=== PATIENT | male | born 1950 | race Caucasian/White ===

== ENCOUNTER 2018-07-05 21:39 | Inpatient (IN) | payer MEDICARE, SELFPAY ==
[2018-07-05 22:07] VITALS: BP 106/64; PULSE 95; RESP 20; TEMP 38; O2SAT 94; BMI 29.5
--- NOTE | 2018-07-05 22:13 | DI.RAD.S_ITS ---
PROCEDURE: XR CHEST 2V INDICATIONS: weak TECHNIQUE: 2 views of the chest were acquired. COMPARISON: None. FINDINGS: Surgical changes and devices: None. Lungs and pleura: Lungs are clear. No pleural effusions or pneumothorax. Mediastinum: The cardiac contours are within normal limits. The aorta demonstrates calcification and tortuosity. Bones and chest wall: No suspicious bony abnormalities. Remote left lateral rib fractures are seen. Age-appropriate bony degenerative changes are seen. Soft tissues appear unremarkable. IMPRESSION: No acute cardiopulmonary process is seen. Remote left lateral rib fractures. Dictated by: Truong East M.D. on 07/06/2018 at 7:46 Approved by: Truong East M.D. on 07/06/2018 at 7:47
[2018-07-06] VITALS (13 sets, daily range): BP systolic 86–136; BP diastolic 47–69; PULSE 77–94; RESP 12–22; TEMP 36.4–38.9; O2SAT 94–100; BMI 29.5
--- NOTE | 2018-07-06 | DI.US.S_ITS ---
PROCEDURE: US RENAL COMPLETE INDICATIONS: RENAL FAILURE TECHNIQUE: Real-time scanning was performed of the kidneys and bladder, with image documentation. COMPARISON: None. FINDINGS: Kidneys: Kidneys are normal in size. Right kidney measures 13.8 cm long; left kidney measures 15.2 cm long. Right renal cortical thickness is 2.4 cm; left renal cortical thickness is 1.7 cm. Renal cortical echotexture is normal. Bilateral moderate hydronephrosis is present. No solid renal lesion identified.. Bladder: Pre-void bladder volume is 3011 mL. Post-void residual is unobtainable as the patient was unable to void Pre-void images demonstrate no intraluminal masses or stones. On pre-void images, neither of the ureteral jets are noted with color Doppler interrogation. (Of note, ureteral jets may not be detectable in up to 25% of cases due to insufficient differences in specific gravity between ureteral and bladder urine). Miscellaneous: No free pelvic fluid. IMPRESSION: Moderate bilateral hydronephrosis. Massive dilatation of the bladder. At the time of examination, placement of a Riley catheter was attempted however unsuccessful. Urology consultation is reportedly pending. Dictated by: Delon Rhodes M.D. on 07/06/2018 at 15:36 Approved by: Delon Rhodes M.D. on 07/06/2018 at 15:38
[2018-07-06 00:22] LABS: Hematocrit 33.4 % (41-53); Hemoglobin 11.3 g/dL (13.5-17.5); Mean Corpuscular HGB Conc 33.8 % (30-36); Mean Corpuscular Hemoglobin 32.3 PG (26-34); Mean Corpuscular Volume 95.6 fL (80-100); Platelet Count 692 X10^3/uL (150-400); Red Cell Distribution Width 13.5 % (11.6-14.8); White Blood Cell Count 23.5 X10^3/uL (4.5-11.0)
[2018-07-06 00:23] LABS: Alanine Aminotransferase 69 IU/L (21-72); Albumin 3.5 g/dL (3.5-5.0); Albumin Globulin Ratio 0.9 (1.0-2.8); Alkaline Phosphatase 108 U/L (38-126); Aspartate Aminotransferase 52 IU/L (17-59); BUN Creatinine Ratio 17.7 (6-22); Bilirubin Total 0.7 mg/dL (0.2-1.3); Blood Urea Nitrogen 39 mg/dL (9-20); Calcium 8.7 mg/dL (8.4-10.2); Carbon Dioxide 18 mmol/L (22-32); Chloride 88 mmol/L (98-107); Estimated Glomerular Filt Rate 30.1 mL/min (>60); Glucose 137 mg/dL (80-110); HEMOLYSIS < 15 (0-50); Magnesium 2.1 mg/dL (1.6-2.3); Phosphorous 3.1 mg/dL (2.3-3.7); Potassium 4.3 mmol/L (3.4-5.1); Sodium 121 mmol/L (137-145); Total Protein 7.5 g/dL (6.3-8.2)
[2018-07-06 01:28] LABS: Neutrophils Absolute Manual 19975 /uL (3000-5900); RBC Morphology Normal Morphology; Total Cells Counted 100
[2018-07-06] MEDS: SODIUM CHLORIDE 0.9% 1,000 ML 1000 ML IV (01:39)
[2018-07-06 01:47] LABS: Bilirubin Urine UA NEGATIVE (NEGATIVE); Color Urine UA YELLOW; Glucose Urine UA NEGATIVE (Negative); Ketones Urine UA NEGATIVE (NEGATIVE); Leukocyte Esterase Urine UA 3+ (NEGATIVE); Nitrite Urine UA NEGATIVE (Negative); Occult Blood Urine UA 2+ (Negative); Protein Urine UA NEGATIVE (Negative); Urobilinogen Urine UA 0.2 E.U./dL (0.2); pH Urine UA 5.5 (4.5-8.0)
[2018-07-06 01:57] LABS: Appearance Urine UA CLOUDY
[2018-07-06 01:58] LABS: Bacteria Urine Many (>30); Culture Indicated Urine Specimen Cultured; RBC Urine 0-1/HPF (0-5/HPF); Squamous Epithelial Cell Urine 1-5 /HPF (0-5/HPF); WBC Urine 10-30/HPF (0-5/HPF)
[2018-07-06 02:15] LABS: Lactate (Lactic Acid) 0.9 mmol/L (0.7-2.1)
--- NOTE | 2018-07-06 02:18 | ED_ITS ---
HPI - Weakness General Chief complaint: Weakness Stated complaint: HAD FLU NOT FEELING WELL Time Seen by Provider: 07/06/18 00:49 Source: patient and family Mode of arrival: ambulatory History of Present Illness HPI Narrative: Patient is a 67-year-old male presenting with increasing weakness per family. He is typically able do daily living activities over the past few days he has not. He had some sort of infection about 2 weeks ago where he was waking up judging sweat and had chills and rigors. However his back better. He now denies any cough, nausea, vomiting, abdominal pain more frequent urination. No back pain. but has progressively gotten weaker. Family states that he also does drink daily worried that his shaking maybe from withdrawal although he drank yesterday. MD Complaint: generalized weakness Related Data Home Medications Medication Instructions Recorded Confirmed albuterol sulfate [Ventolin HFA] See Rx Instructions .ROUTE 07/05/18 07/06/18 .COMPLEX PRN Allergies Allergy/AdvReac Type Severity Reaction Status Date / Time No Known Drug Allergies Allergy Verified 07/05/18 22:12 Review of Systems Review of Systems ROS Unobtainable: All systems reviewed & are unremarkable except as noted in HPI and below Constitutional Denies chills, Reports excessive sweating, Reports fatigue, Reports fever(s), Denies lethargy and Reports weakness Eyes Denies change in vision, Denies eye discharge, Denies irritation and Denies loss of vision ENT Ears, Nose, Mouth, and Throat: Denies change in voice, Denies neck pain and Denies sore throat Cardiovascular Denies chest pain, Denies irregular heart rhythm, Denies lightheadedness, Denies palpitations, Denies dyspnea, Denies dyspnea on exertion and Denies orthopnea Respiratory Denies cough, Denies dyspnea, Denies dyspnea on exertion and Denies wheezing Gastrointestinal Gastrointestinal: Denies abdominal pain, Denies change in bowel habits, Denies diarrhea, Denies nausea and Denies vomiting Genitourinary Denies hematuria, Denies flank pain, Denies urinary incontinence and Denies urinary urgency Musculoskeletal Denies neck pain Integumentary/Breasts Denies pruritus, Denies erythema, Denies rash and Denies wounds Neurologic Denies loss of vision and Reports weakness Endocrine Reports excessive sweating, Reports fatigue and Denies palpitations Allergic/Immunologic Denies wheezing [facility] Medical History Asthma (Acute) COPD (chronic obstructive pulmonary disease) (Acute) Enlarged prostate (Acute) Surgical History Hx of cataract surgery (Acute) Social History household members: none Smoking Status: Former smoker Social History household members: none Smoking Status: Former smoker Exam Initial Vital Signs Initial Vital Signs: Vital Signs Temperature 100.4 F H 07/05/18 22:07 Pulse Rate 95 H 07/05/18 22:07 Respiratory Rate 20 07/05/18 22:07 Blood Pressure 106/64 07/05/18 22:07 Pulse Oximetry 94 07/05/18 22:07 GENERAL: Alert male appears weak but not toxic . HEENT: Head atraumatic,EOMI, pupils reactive, neck is supple, dry mucous members CARDIOVASCULAR: Regular rate and rhythm without murmurs, rubs or gallops. RESPIRATORY: Breath sounds equal bilaterally, no wheezes rales or rhonchi. ABDOMEN: Soft, nontender. Normoactive bowel sounds all 4 quadrants. No guarding or rebound. : No CVA tenderness EXTREMITIES: Normal range of motion, no clubbing or edema. Neurovascularly intact NEUROLOGICAL: Alert and oriented x4.Normal gait and speech. Cranial nerves II through XII grossly intact. SKIN: Slightly diaphoretic and moist no erythema Course Orders Ordered: ED Orders 07/05/18 22:13 XR chest 2V Stat EKG-12 Lead Stat 07/05/18 23:59 CBC manual diff [Complete Blood Count MAN DIFF] Stat CMP [Comprehensive Metabolic Panel] Stat Magnesium Stat Phosphorous Stat 07/06/18 EKG-12 Lead Routine 07/06/18 01:40 Urinalysis and Microscopic Stat Urine Culture Stat 07/06/18 01:46 Blood Culture Stat Lactate (Lactic Acid) Stat 07/06/18 05:32 Education, smoking cessation ONGOING 07/06/18 06:03 RT Consult Eval and Treat Now 07/06/18 07:00 Basic Metabolic Panel Stat Complete Blood Count AUTO DIFF Routine Procalcitonin Routine Acetaminophen (Tylenol) 650 mg PO Q6HR PRN PRN Reason: As Needed for Fever/Mild Pain Al Hydrox/Mg Hydrox/Simethicone (Maalox Plus) 30 ml PO Q6HR PRN PRN Reason: Dyspepsia Albuterol (Ventolin) 2.5 mg INH Q4H PRN PRN Reason: Shortness Of Breath Or Wheezing Albuterol (Ventolin Hfa) 2 puff INH RTQ4HR PRN PRN Reason: Shortness Of Breath Or Wheezing Bisacodyl (Dulcolax) 10 mg PO DAILY PRN PRN Reason: Constipation Calcium Carbonate (Tums) 1,000 mg PO Q4HR PRN PRN Reason: Dyspepsia Docusate Sodium (Colace) 100 mg PO BID PRN PRN Reason: Constipation Enoxaparin Sodium (Lovenox) 40 mg SUBCUT DAILY PAULINE Sodium Chloride (Normal Saline 0.9%) 1,000 mls @ 125 mls/hr IV CONT PAULINE Last Admin: 07/06/18 04:51 Dose: 125 mls/hr Ondansetron HCl (Zofran) 4 mg IV Q8HR PRN PRN Reason: Nausea And Vomiting Discontinued Medications Acetaminophen (Tylenol) 650 mg PO Q6HR PRN PRN Reason: As Needed for Fever/Mild Pain Sodium Chloride (Normal Saline 0.9%) 1,000 mls @ 1,000 mls/hr IV BOLUS ONE Stop: 07/06/18 02:34 Last Infusion: 07/06/18 02:40 Dose: 1,000 mls/hr Admin: 07/06/18 01:39 Dose: 1,000 mls/hr Ceftriaxone Sodium/Dextrose (Rocephin) 1 gm in 50 mls @ 100 mls/hr IV NOW ONE Stop: 07/06/18 02:45 Last Infusion: 07/06/18 03:06 Dose: 100 mls/hr Admin: 07/06/18 02:36 Dose: 100 mls/hr Sodium Chloride (Normal Saline 0.9%) 1,000 mls @ 1,000 mls/hr IV BOLUS ONE Stop: 07/06/18 03:36 Last Admin: 07/06/18 04:46 Dose: Not Given Ondansetron HCl (Zofran) 4 mg IV Q4HR PRN PRN Reason: Nausea And Vomiting Vital Signs - 8 hr 07/06/18 00:16 07/06/18 01:00 07/06/18 02:08 Temperature 98.4 F 99.2 F Pulse Rate 94 H 92 H Respiratory Rate 22 18 Blood Pressure Blood Pressure [Right Arm] 101/64 136/64 Pulse Oximetry 94 97 07/06/18 04:51 Temperature 97.5 F L Pulse Rate 88 Respiratory Rate 18 Blood Pressure 121/69 Blood Pressure [Right Arm] Pulse Oximetry 100 MDM - Weakness Lab Data Attestation: I reviewed the patient's lab results. Result diagrams: 07/05/18 23:59 07/05/18 23:59 Lab Results 07/05/18 07/05/18 07/06/18 Range/Units 23:59 23:59 01:40 WBC 23.5 H (4.5-11.0) X10^3/uL RBC 3.50 L (4.5-5.9) X10^6/uL Hgb 11.3 L (13.5-17.5) g/dL Hct 33.4 L (41-53) % MCV 95.6 (80-100) fL MCH 32.3 (26-34) PG MCHC 33.8 (30-36) % RDW 13.5 (11.6-14.8) % Plt Count 692 H (150-400) X10^3/uL Total Counted 100 Seg Neutrophils % 69.0 (38-70) % Band Neutrophils % 16.0 H (3-7) % Lymphocytes % (Manual) 9.0 L (25-45) % Atypical Lymphs % 1.0 H ( - 0) % Monocytes % (Manual) 5.0 (2-11) % Neutrophils # (Manual) 04004 H (9187-3958) /uL RBC Morphology Normal morphology Sodium 121 L (137-145) mmol/L Potassium 4.3 (3.4-5.1) mmol/L Chloride 88 L (98-107) mmol/L Carbon Dioxide 18 L (22-32) mmol/L BUN 39 H (9-20) mg/dL Creatinine 2.20 H (0.66-1.25) mg/dL Estimated GFR 30.1 L (>60) mL/min BUN/Creatinine Ratio 17.7 (6-22) Glucose 137 H (80-110) mg/dL Lactate (0.7-2.1) mmol/L Calcium 8.7 (8.4-10.2) mg/dL Phosphorus 3.1 (2.3-3.7) mg/dL Magnesium 2.1 (1.6-2.3) mg/dL Total Bilirubin 0.7 (0.2-1.3) mg/dL AST 52 (17-59) IU/L ALT 69 (21-72) IU/L Alkaline Phosphatase 108 (38-126) U/L Total Protein 7.5 (6.3-8.2) g/dL Albumin 3.5 (3.5-5.0) g/dL Globulin 4.0 (1.7-4.1) g/dL Albumin/Globulin Ratio 0.9 L (1.0-2.8) Urine Color Yellow Urine Appearance Cloudy Urine pH 5.5 (4.5-8.0) Ur Specific [place] 1.010 (1.000-1.035) Urine Protein Negative (Negative) Urine Glucose (UA) Negative (Negative) g/dL Urine Ketones Negative (NEGATIVE) Urine Occult Blood 2+ H (Negative) Urine Nitrate Negative (Negative) Urine Bilirubin Negative (NEGATIVE) Urine Urobilinogen 0.2 (0.2) E.U./dL Ur Leukocyte Esterase 3+ H (NEGATIVE) Urine RBC 0-1/hpf (0-5/HPF) Urine WBC 10-30/hpf H (0-5/HPF) Ur Squamous Epith Cells 1-5 /hpf (0-5/HPF) Urine Bacteria Many (>30) H (None) Ur Culture Indicated? Specimen cultured 07/06/18 Range/Units 01:46 WBC (4.5-11.0) X10^3/uL RBC (4.5-5.9) X10^6/uL Hgb (13.5-17.5) g/dL Hct (41-53) % MCV (80-100) fL MCH (26-34) PG MCHC (30-36) % RDW (11.6-14.8) % Plt Count (150-400) X10^3/uL Total Counted Seg Neutrophils % (38-70) % Band Neutrophils % (3-7) % Lymphocytes % (Manual) (25-45) % Atypical Lymphs % ( - 0) % Monocytes % (Manual) (2-11) % Neutrophils # (Manual) ([id number]) /uL RBC Morphology Sodium (137-145) mmol/L Potassium (3.4-5.1) mmol/L Chloride (98-107) mmol/L Carbon Dioxide (22-32) mmol/L BUN (9-20) mg/dL Creatinine (0.66-1.25) mg/dL Estimated GFR (>60) mL/min BUN/Creatinine Ratio (6-22) Glucose (80-110) mg/dL Lactate 0.9 (0.7-2.1) mmol/L Calcium (8.4-10.2) mg/dL Phosphorus (2.3-3.7) mg/dL Magnesium (1.6-2.3) mg/dL Total Bilirubin (0.2-1.3) mg/dL AST (17-59) IU/L ALT (21-72) IU/L Alkaline Phosphatase (38-126) U/L Total Protein (6.3-8.2) g/dL Albumin (3.5-5.0) g/dL Globulin (1.7-4.1) g/dL Albumin/Globulin Ratio (1.0-2.8) Urine Color Urine Appearance Urine pH (4.5-8.0) Ur Specific [place] (1.000-1.035) Urine Protein (Negative) Urine Glucose (UA) (Negative) g/dL Urine Ketones (NEGATIVE) Urine Occult Blood (Negative) Urine Nitrate (Negative) Urine Bilirubin (NEGATIVE) Urine Urobilinogen (0.2) E.U./dL Ur Leukocyte Esterase (NEGATIVE) Urine RBC (0-5/HPF) Urine WBC (0-5/HPF) Ur Squamous Epith Cells (0-5/HPF) Urine Bacteria (None) Ur Culture Indicated? Urine Dip Bedside Urine Glucose Negative Bedside Urine Bilirubin - Negative Bedside Urine Ketone - Negative Urine Specific [place] 1.015 Bedside Urine Occult Blood + Bedside Urine pH 6.0 Bedside Urine Protein +/- 15 Bedside Urine Urobilinogen - Negative Bedside Urine Nitrite - Negative Bedside Urine Leukocytes +++ 500 Esterase Imaging Data Chest x-ray: Attestation: I personally reviewed and interpreted this imaging study as follows: My impression: No acute cardiopulmonary process MDM Narrative Medical decision making narrative: Patient is febrile with leukocytosis of 23. A likely from a UTI although he has no symptoms. he is also noted to be hyponatremic His blood pressure and heart rate remained stable he has a normal lactic acid. He is given 1 dose of Rocephin. His children are at bedside and agree with admission. Hospitalist Pb accepts. but request i write holding orders. Discharge Plan Departure Patient Disposition: Admitted As Inpatient Clinical Impression: Acute UTI, Acute hyponatremia Sepsis Qualifiers: Sepsis type: sepsis due to unspecified organism Qualified Code(s): A41.9 - Sepsis, unspecified organism Discharge Date/Time: 07/06/18 04:05 Interventions: ED Discharge Assessment Last Done: 07/06/18 04:05 Admit Date/Time: 07/06/18 03:56 Admit Provider: Farhad Ambriz
[2018-07-06] MEDS: CEFTRIAXONE 1 GM/50 ML FROZ.PIGGY IV ×2 (02:36→20:14)
[2018-07-06] MEDS: SODIUM CHLORIDE 0.9% 1,000 ML 125 ML IV ×3 (04:51→21:59)
[2018-07-06 07:29] LABS: BUN Creatinine Ratio 18.6 (6-22); Blood Urea Nitrogen 41 mg/dL (9-20); Carbon Dioxide 19 mmol/L (22-32); Chloride 92 mmol/L (98-107); Estimated Glomerular Filt Rate 30.1 mL/min (>60); Glucose 104 mg/dL (80-110); HEMOLYSIS < 15 (0-50); Potassium 4.1 mmol/L (3.4-5.1); Sodium 124 mmol/L (137-145)
--- NOTE | 2018-07-06 08:06 | P.HP_ITS ---
History of Present Illness Date Patient Seen: 07/06/18 Time Patient Seen: 07:52 Chief complaint: HAD FLU NOT FEELING WELL Narrative: Patient is a 67-year-old male with history of COPD presents to the emergency department with complaints of fevers, chills and weakness for the previous 2 weeks. He denies cough or respiratory exacerbation. He has noticed urinary urgency and weak stream with frequent urination over the past 2 weeks. He has history of BPH. On initial evaluation he was afebrile and normotensive. He has elevated WBC 23 K, abnormal renal functionWith BUN 39 and creatinine 2.2 and a mild anion gap acidosis as well as moderate hyponatremia with a serum sodium 121. Chest x-ray without infiltrate. Urine looks obviously infected with leukocytosis and many bacteria. Patient History Medical History Asthma (Acute) COPD (chronic obstructive pulmonary disease) (Acute) Enlarged prostate (Acute) Surgical History Hx of cataract surgery (Acute) Social History household members: none Smoking Status: Former smoker Family & Social History Social History: household members none Prior Living Arrangements House Safety & Behavioral: Feels Safe in Current Yes Environment Been Physically Hurt or No Threatened By a Person Suicide Plan Description No Plan Tobacco & Substance use: Smoking Status Former smoker alcohol intake frequency 3 or more drinks per day Substance Use Type marijuana Meds Home Medications Medication Instructions Recorded Confirmed Type albuterol sulfate [Ventolin HFA] See Rx Instructions .ROUTE 07/05/18 07/06/18 History .COMPLEX PRN Allergies Allergy/AdvReac Type Severity Reaction Status Date / Time No Known Drug Allergies Allergy Verified 07/05/18 22:12 Review of Systems Review of Systems All systems reviewed & are unremarkable except as noted in HPI and below Exam Vital Signs (past 8 hours): - 07/06/18 00:16 07/06/18 01:00 07/06/18 02:08 Temperature 98.4 F 99.2 F Pulse Rate 94 H 92 H Respiratory Rate 22 18 Blood Pressure Blood Pressure [Right Arm] 101/64 136/64 Pulse Oximetry 94 97 07/06/18 04:51 Temperature 97.5 F L Pulse Rate 88 Respiratory Rate 18 Blood Pressure 121/69 Blood Pressure [Right Arm] Pulse Oximetry 100 Oxygen Delivery Method Room Air Oxygen Flow Rate 0 Narrative Exam Narrative: GENERAL: Alert but ill-appearing male lying in bed HEAD: Atraumatic. Normocephalic. EYES: Pupils equal, round and reactive. Extraocular motions intact. No scleral icterus. No injection or drainage. OROPHARYNX: Dry oral mucosa NECK: Trachea midline. No JVD or lymphadenopathy. CARDIOVASCULAR: Regular rate and rhythm without murmurs, gallops, or rubs. RESPIRATORY: Clear to auscultation bilaterally. GASTROINTESTINAL: Abdomen obese, soft, non-tender. No hepato-splenomegaly, or palpable masses. Back: No CVAT EXTREMITIES: No edema. NEUROLOGICAL: well oriented, speech is intact, normal bilateral upper and lower extremity strength SKIN: warm, dry, no rash Objective Labs Result Diagrams: 07/05/18 23:59 07/06/18 07:07 Labs: Laboratory Results - last 24 hr 07/05/18 07/05/18 07/06/18 23:59 23:59 01:40 WBC 23.5 H RBC 3.50 L Hgb 11.3 L Hct 33.4 L MCV 95.6 MCH 32.3 MCHC 33.8 RDW 13.5 Plt Count 692 H Total Counted 100 Seg Neutrophils % 69.0 Band Neutrophils % 16.0 H Lymphocytes % (Manual) 9.0 L Atypical Lymphs % 1.0 H Monocytes % (Manual) 5.0 Neutrophils # (Manual) 19571 H RBC Morphology Normal morphology Sodium 121 L Potassium 4.3 Chloride 88 L Carbon Dioxide 18 L BUN 39 H Creatinine 2.20 H Estimated GFR 30.1 L BUN/Creatinine Ratio 17.7 Glucose 137 H Lactate Calcium 8.7 Phosphorus 3.1 Magnesium 2.1 Total Bilirubin 0.7 AST 52 ALT 69 Alkaline Phosphatase 108 Total Protein 7.5 Albumin 3.5 Globulin 4.0 Albumin/Globulin Ratio 0.9 L Urine Color Yellow Urine Appearance Cloudy Urine pH 5.5 Ur Specific [place] 1.010 Urine Protein Negative Urine Glucose (UA) Negative Urine Ketones Negative Urine Occult Blood 2+ H Urine Nitrate Negative Urine Bilirubin Negative Urine Urobilinogen 0.2 Ur Leukocyte Esterase 3+ H Urine RBC 0-1/hpf Urine WBC 10-30/hpf H Ur Squamous Epith Cells 1-5 /hpf Urine Bacteria Many (>30) H Ur Culture Indicated? Specimen cultured 07/06/18 07/06/18 01:46 07:07 WBC RBC Hgb Hct MCV MCH MCHC RDW Plt Count Total Counted Seg Neutrophils % Band Neutrophils % Lymphocytes % (Manual) Atypical Lymphs % Monocytes % (Manual) Neutrophils # (Manual) RBC Morphology Sodium 124 L Potassium 4.1 Chloride 92 L Carbon Dioxide 19 L BUN 41 H Creatinine 2.20 H Estimated GFR 30.1 L BUN/Creatinine Ratio 18.6 Glucose 104 Lactate 0.9 Calcium 8.0 L Phosphorus Magnesium Total Bilirubin AST ALT Alkaline Phosphatase Total Protein Albumin Globulin Albumin/Globulin Ratio Urine Color Urine Appearance Urine pH Ur Specific [place] Urine Protein Urine Glucose (UA) Urine Ketones Urine Occult Blood Urine Nitrate Urine Bilirubin Urine Urobilinogen Ur Leukocyte Esterase Urine RBC Urine WBC Ur Squamous Epith Cells Urine Bacteria Ur Culture Indicated? Assessment & Plan Assessment & Plan narrative: This is a 67-year-old male with history of BPH and COPD presents with 2 weeks of fevers, chills with evidence of urinary infection. 1. Sepsis with end-organ failure -WBC 23, creatinine 2.2, initial BP 100 systolic range and heart rate 95, normal lactic acid -procalcitonin pending -blood in urine cultures pending -source of sepsis appears to be urinary based on abnormal urinalysis, chest x- ray normal -received Rocephin and volume resuscitation in ED -continue Rocephin 1 g IV Q 24 hours, IV fluids 2. Urinary tract infection -possibly secondary to acute prostatitis inpatient with enlarged prostate -continue IV antibiotic as above and follow up on culture results 3. Acute kidney injury -BUN 39, creatinine 2.2, bicarb 18 with anion gap 15, patient without history of chronic kidney disease -etiology likely pre renal due to sepsis, however cannot rule out postobstructive due to prostatic obstruction, or intrarenal due to ATN -obtain bilateral renal ultrasound -continue IV fluids, monitor urine output and recheck labs in a.m. 4. Acute hyponatremia -serum sodium 121, likely due to volume depletion -continue normal saline drip -recheck labs in a.m. 5. Anemia, thrombocythemia -etiology is likely acute affects of sepsis -recheck labs in a.m. 6. COPD without exacerbation -continue albuterol nebulizer as needed Patient admitted to inpatient service with expected greater than 2 midnight stay for treatment of sepsis and associated complications.
[2018-07-06 08:17] LABS: Hematocrit 32.6 % (41-53); Hemoglobin 10.9 g/dL (13.5-17.5); Mean Corpuscular HGB Conc 33.6 % (30-36); Mean Corpuscular Hemoglobin 32.6 PG (26-34); Mean Corpuscular Volume 97.1 fL (80-100); Platelet Count 452 X10^3/uL (150-400); Red Blood Cell Count 3.35 X10^6/uL (4.5-5.9); Red Cell Distribution Width 13.3 % (11.6-14.8); White Blood Cell Count 17.2 X10^3/uL (4.5-11.0)
[2018-07-06 08:18] LABS: Add Manual Diff / Slide Review YES
[2018-07-06 08:35] LABS: Procalcitonin 0.67 ng/mL (<0.5)
[2018-07-06 08:37] LABS: Neutrophils Absolute Manual 13932 /uL (3000-5900); RBC Morphology Normal Morphology; Total Cells Counted 100
[2018-07-06] MEDS: ENOXAPARIN 30 MG/0.3 ML SYRINGE SUBCUT (10:14)
--- NOTE | 2018-07-06 10:20 | PC.NURSE ---
Pt alert, follows commands, nods off to sleep easily. Takes po liquids reasonably well. needs to concentrate. in at bedside. Spoke with Dr. Almaraz, [facility] Pt also aware of transfer.
--- NOTE | 2018-07-06 11:27 | CM.DANOTE ---
DCP: Case received, EMR reviewed and met with patient. Introduced self and role. Spoke with patient regarding his living conditions prior to admit. DCP template completed with information currently available. Patient is a 67 year old male who admitted early this morning to the care of the hospitalist team. PCP: Dr. Almaraz Payer: confirmed: Medicare. Patient came to hospital via family vehicle due to increased weakness and flu symptoms. Patient holds diagnosis of Sepis/Acute UTI, as well as hyponatremia. Patient also has history of alcohol use. Met briefly with patient in room. Alert and oriented, was laying in bed. Asked him if he had family support at home. He stted that he has a son named Dennis who is very involved. He also lives in [place]. P: DCP to follow closely as plan unfolds. May need to consult with physical therapy team if he is here for a few days, regarding being able to return home. Jo Ann Sam RN/Photographer
--- NOTE | 2018-07-06 11:38 | PC.NURSE ---
Addendum entered by Shaw Dillard R.N. 07/06/18 15:58: 14:30 Notified by Irlanda US that Pt had 3,000 cc in his bladder and could we talk with Dr. Almaraz about a catheter. Dr. Almaraz notified orders given. Two attempts made by this Nurse with a 16 [place] and a coude catheter were unsuccessful ED was called and Charge Nurse Alexa tried as well without success. Dr. Almaraz was informed and Dr. Bustillos s number was obtained. Pt was made NPO and IVF was decreased. Dr. Almaraz to call Dr. Bustillos. Pt restful, offers no c/o pain presently. Report given to evening shift Nina SMALL Addendum entered by Shaw Dillard R.N. 07/06/18 14:05: Pt resting at present. waiting for renal ultra sound. family at bedside. IV intact and patent. Original Note: Pt alert, expresses needs well, offers no overt difficulty. Pt's daughter attentive at bedside. RT is to see and assess Pt. Up to shower with OBSTETRICS AND GYNECOLOGY PROFESSOR's assistance. Pt in bed presently resting.
--- NOTE | 2018-07-06 15:40 | PC.NURSE ---
Addendum entered by Nina Urbano, Noe 07/06/18 22:45: Total urine output since harvey placed = 3,150 ml. Slight temp earlier of 100.3, now patient sweating & afebrile 98.3. BP low at 86/52, I notified Toyin GORE who gave order for NS bolus 500 ml which is now infusing. Patient oriented x 3. Tylenol given earlier tonight for c/o discomfort from harvey placement, now reports pain better. Assisted into recliner, RT here to give treatment, CONSULTING INTERN changed all linens as sheet was soiled with urine stains. Pt then transfered back to bed where he is now dozing. Addendum entered by Nina Urbano R.N. 07/06/18 19:21: Dr Bustillos here to see patient. 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 Purulent pus discharge from urethral meatus observed. Dr Bustillos placed harvey cath, patient yelled out several times during procedure, reporting to me that it was very uncomfortable. Words of comfort/support offered, instructing patient to deep breathe during procedure. After harvey placed patient denied any further pain. 1750 ml immediate return. Urine cloudy yellow, towards end of drainage into bag I observed urine more milky white/yellow in color. Sample sent to lab, collected from harvey port. Original Note: Per ultrasound, patient has over 3,000 ml of urine in bladder. Shaw SMALL attempted to place harvey cath x 2. VEGETABLE WORKERSTACI Liu unable to place harvey cath x 2. Dr Almaraz notified of situation Shaw SMALL day shift RN. Patient denies any abdomen pain, reports uncomfortable from when they tried to put that thing in. Denies nausea, face and skin dusky. He is oriented to situation. IVF rate turned down to 75 ml/hour, he remains NPO. Patient aware that we are waiting for Urologist Dr Bustillos to see him.
[2018-07-06] MEDS: ALBUTEROL 2.5 MG/3 ML NEB (ADULT) INH ×2 (17:38→22:02)
[2018-07-06 18:42] LABS: Bilirubin Urine UA NEGATIVE (NEGATIVE); Color Urine UA YELLOW; Glucose Urine UA NEGATIVE (Negative); Ketones Urine UA NEGATIVE (NEGATIVE); Leukocyte Esterase Urine UA 3+ (NEGATIVE); Nitrite Urine UA NEGATIVE (Negative); Occult Blood Urine UA 3+ (Negative); Protein Urine UA 2+ (Negative); Specific Gravity Urine UA 1.015 (1.000-1.035); Urobilinogen Urine UA 0.2 E.U./dL (0.2)
[2018-07-06 18:51] LABS: Appearance Urine UA Turbid
[2018-07-06 19:19] LABS: RBC Urine 5-10/HPF (0-5/HPF)
[2018-07-06 19:20] LABS: Bacteria Urine Many (>30); Culture Indicated Urine Specimen Cultured; Squamous Epithelial Cell Urine 1-5 /HPF (0-5/HPF); WBC Urine >100/HPF (0-5/HPF)
[2018-07-06] MEDS: ACETAMINOPHEN 325 MG TABLET 650 MG PO (20:14)
--- NOTE | 2018-07-06 23:44 | CONS_ITS ---
DATE OF SERVICE: 07/06/2018 REQUESTING PHYSICIAN: Daniel Almaraz MD REASON FOR CONSULTATION: Inability to place Riley catheter. HISTORY OF PRESENT ILLNESS: The patient is a 67-year-old white male, presenting to [facility] Emergency Department this day, with at least a several week history of urinary frequency and urgency, and small voided volumes. Over the last several days, he has just generally has not felt well, and presented with additional flu-like constitutional symptoms. Bladder scan revealed a residual of 3 L, and laboratories were consistent with acute kidney injury. Emergency department personnel, and floor staff, were unable to insert the catheter. Allergies; past medical, surgical, social, family histories; and review of systems reflected accurately in Dr. Daniel Almaraz's admission history and physical examination. PHYSICAL EXAMINATION: GENERAL APPEARANCE: He is laying in bed, with a flat or obtunded affect. Cheeks are flushed. He is in no acute distress. CHEST: Equal and unlabored bilaterally. HEART: Rate is regular rate, about 100. ABDOMEN: Moderately obese and protuberant, with mild tenderness elicited with palpation of the suprapubic area. Difficult to feel the upper contour of the bladder. EXTERNAL GENITALIA: Normal circumcised male. Meatus is nearly pinpoint. Testes descended bilaterally. No mass or fluid collection. RECTAL: Not performed. EXTREMITIES: No edema, cyanosis, or pallor. IMPRESSION: 1. Urinary retention. 2. Acute kidney injury, probably on chronic kidney disease. 3. Pinpoint meatal stenosis. Surrounding skin does not appear to be consistent with lichen sclerosus. PLAN: 1. Using sterile technique, the lower abdomen, genitalia, and groin were prepped and draped in a sterile fashion. A Glidewire was used to cannulate the meatus. Over this, the smallest of Sky sounds was advanced and subsequently up to 16-[place]izen [place], with disruption of the dense distal stenosis. A 16-[place]izen [place] Riley catheter was then passed through the urinary tract, the balloon inflated 10 mL, and it was placed to gravity drainage. The urine did appear turbid as specimen was procured and submitted for routine urinalysis and culture. 2. Recommend close monitoring of intake and outputs, and allow him, as indicated, free access to fluid repletion. He is at risk of brisk post- obstructive diuresis. If necessary, may replace recovered voided volumes with 0.5 mL of normal saline per full milliliter urine output, and monitor electrolytes as well. 3. Recommend going ahead and prescribing tamsulosin 0.4 mg at bedtime. He may follow up in my office following discharge, and I will arrange and conduct a voiding trial. Prognosis for catheter independence is relatively low, in individuals presenting with marked residual volumes. Pranav Alberto - HUNTER/kamilla/pedro pablo doc#: [id number]/job#: [id number] dd: 07/06/2018 18:20:00 dt: 07/06/2018 23:09:00 DICTATING /COPIES TO: Kristopher Bustillos MD; Daniel Almaraz MD; COPIES MNE: SHANELL JOLLEY
[2018-07-07] VITALS (8 sets, daily range): BP systolic 100–121; BP diastolic 47–67; PULSE 75–87; RESP 16–18; TEMP 35.7–37.2; O2SAT 94–99
[2018-07-07] MEDS: SODIUM CHLORIDE 0.9% 500 ML 1000 ML IV (00:50)
[2018-07-07] MEDS: SODIUM CHLORIDE 0.9% 1,000 ML 125 ML IV ×2 (04:39→12:19)
[2018-07-07 05:31] LABS: BUN Creatinine Ratio 21.3 (6-22); Blood Urea Nitrogen 34 mg/dL (9-20); Calcium 8.1 mg/dL (8.4-10.2); Carbon Dioxide 21 mmol/L (22-32); Chloride 102 mmol/L (98-107); Estimated Glomerular Filt Rate 43.5 mL/min (>60); Glucose 99 mg/dL (80-110); HEMOLYSIS < 15 (0-50); Potassium 3.6 mmol/L (3.4-5.1); Sodium 132 mmol/L (137-145)
[2018-07-07 05:38] LABS: Add Manual Diff / Slide Review NO; Basophils Absolute Auto 100 /uL (0-100); Basophils Percent Auto 0.6 % (0-2); Eosinophils Absolute Auto 0 /uL (0-450); Eosinophils Percent Auto 0.2 % (2-4); Hemoglobin 9.8 g/dL (13.5-17.5); Lymphocytes Absolute Auto 1100 /uL (1100-4500); Lymphocytes Percent Auto 9.1 % (25-40); Mean Corpuscular HGB Conc 33.9 % (30-36); Mean Corpuscular Hemoglobin 33.2 PG (26-34); Mean Corpuscular Volume 97.8 fL (80-100); Monocytes Absolute Auto 1100 /uL (0-900); Monocytes Percent Auto 9.4 % (3-14); Neutrophils Absolute Auto 9400 /uL (1500-7000); Neutrophils Percent Auto 80.7 % (50-75); Platelet Count 435 X10^3/uL (150-400); Red Blood Cell Count 2.96 X10^6/uL (4.5-5.9); Red Cell Distribution Width 13.4 % (11.6-14.8); White Blood Cell Count 11.6 X10^3/uL (4.5-11.0)
--- NOTE | 2018-07-07 07:09 | P.PN_ITS ---
Subjective Date Patient Seen: 07/07/18 Interval history: Pranav Alberto is a 67-year-old male with a past medical history significant for BPH and COPD who presented with 2 weeks of fevers, chills, and evidence of urinary tract infection. The patient is resting in bed comfortably and in no acute distress. He reports he feels significantly better than when he was admitted. He denies fevers or chills today. He reports his appetite is improving. He has mild abdominal ache due to reportedly eating his whole lunch for the first time. He also endorses mild subjective shortness of breath with position changes. He denies headache, chest pain, nausea, vomiting, fever, chills, dysuria, diarrhea or constipation. He is voiding via Riley catheter and eliminating without difficulty. He is up ambulating minimally with assistance. Exam Vital Signs (past 8 hours): - 07/07/18 00:56 07/07/18 05:00 Temperature 96.3 F L 97.4 F L Pulse Rate 75 79 Respiratory Rate 17 18 Blood Pressure 120/63 117/66 Pulse Oximetry 97 99 Oxygen Delivery Method Room Air Oxygen Flow Rate 0 Narrative Exam Narrative: General: Middle-aged male resting in bed and in no acute distress, appears pale, older than stated age and chronically ill, well-developed, well-nourished, appropriately interactive. HEENT: Normocephalic, atraumatic. External ears without defect. Pupils equal, round, and reactive to light. Anicteric sclerae, moist conjunctivae, and no lid lag. Neck: Supple with full range of motion. No jugular venous distension. No lymphadenopathy or thyromegaly. Cardiovascular: Regular rate and rhythm without murmurs, rubs, or gallops appreciated. Pulmonary: Clear to auscultation bilaterally without crackles, wheezes, or rhonchi. Normal respiratory effort with no use of accessory muscles. Abdomen: Soft, bowel sounds present, nontender, nondistended. No hepatosplenomegaly or masses appreciated. Genitourinary: Riley catheter in place draining clear urine. Extremities: No clubbing or cyanosis. Mild pitting edema bilaterally to pretibial area. Skin: Normal temperature, turgor, and texture; no rash, ulcers, or subcutaneous nodules appreciated. Neurological: Cranial nerves grossly intact. Psychiatric: Mildly depressed mood and flat affect. Alert and oriented to person, place, and time. Objective Labs Result Diagrams: 07/07/18 04:52 07/07/18 04:52 Labs: Laboratory Results - last 24 hr 07/06/18 07/06/18 07/06/18 07:07 07:07 07:07 WBC 17.2 H RBC 3.35 L Hgb 10.9 L Hct 32.6 L MCV 97.1 MCH 32.6 MCHC 33.6 RDW 13.3 Plt Count 452 H Neut % (Auto) Not Reportable Lymph % (Auto) Not Reportable [place] % (Auto) Not Reportable Eos % (Auto) Not Reportable Baso % (Auto) Not Reportable Neut # (Auto) Lymph # (Auto) Not Reportable [place] # (Auto) Not Reportable Eos # (Auto) Baso # (Auto) Not Reportable Total Counted 100 Seg Neutrophils % 79.0 H Band Neutrophils % 2.0 L Lymphocytes % (Manual) 8.0 L Atypical Lymphs % 4.0 H Monocytes % (Manual) 7.0 Neutrophils # (Manual) 15042 H RBC Morphology Normal morphology Sodium 124 L Potassium 4.1 Chloride 92 L Carbon Dioxide 19 L BUN 41 H Creatinine 2.20 H Estimated GFR 30.1 L BUN/Creatinine Ratio 18.6 Glucose 104 Calcium 8.0 L Procalcitonin 0.67 H Urine Color Urine Appearance Urine pH Ur Specific [place] Urine Protein Urine Glucose (UA) Urine Ketones Urine Occult Blood Urine Nitrate Urine Bilirubin Urine Urobilinogen Ur Leukocyte Esterase Urine RBC Urine WBC Ur Squamous Epith Cells Urine Bacteria Ur Culture Indicated? 07/06/18 07/07/18 07/07/18 18:15 04:52 04:52 WBC 11.6 H RBC 2.96 L Hgb 9.8 L Hct 29.0 L MCV 97.8 MCH 33.2 MCHC 33.9 RDW 13.4 Plt Count 435 H Neut % (Auto) 80.7 H Lymph % (Auto) 9.1 L [place] % (Auto) 9.4 Eos % (Auto) 0.2 L Baso % (Auto) 0.6 Neut # (Auto) 9400 H Lymph # (Auto) 1100 [place] # (Auto) 1100 H Eos # (Auto) 0 Baso # (Auto) 100 Total Counted Seg Neutrophils % Band Neutrophils % Lymphocytes % (Manual) Atypical Lymphs % Monocytes % (Manual) Neutrophils # (Manual) RBC Morphology Sodium 132 L Potassium 3.6 Chloride 102 Carbon Dioxide 21 L BUN 34 H Creatinine 1.60 H Estimated GFR 43.5 L BUN/Creatinine Ratio 21.3 Glucose 99 Calcium 8.1 L Procalcitonin Urine Color Yellow Urine Appearance Turbid Urine pH 6.0 Ur Specific [place] 1.015 Urine Protein 2+ H Urine Glucose (UA) Negative Urine Ketones Negative Urine Occult Blood 3+ H Urine Nitrate Negative Urine Bilirubin Negative Urine Urobilinogen 0.2 Ur Leukocyte Esterase 3+ H Urine RBC 5-10/hpf H Urine WBC >100/hpf H Ur Squamous Epith Cells 1-5 /hpf Urine Bacteria Many (>30) H Ur Culture Indicated? Specimen cultured Assessment & Plan Assessment & Plan narrative: Pranav Alebrto is a 67-year-old male with a past medical history significant for BPH and COPD who presented with 2 weeks of fevers, chills, and evidence of urinary tract infection. 1. Acute sepsis, present on admission. Resolved. -Sepsis criteria met including: Fever (100.4F), leukocytosis (WBC 23), procalcitonin 0.67, mildly 97/47, acute kidney injury (creatinine 2.2) with s ource urinary tract infection. LA normal. -Early goal-directed therapy met including: IV fluid resuscitation and broad- spectrum antibiotics. 2. Acute urinary tract infection, present on admission. Active. -Patient presented with fever and chills x2 weeks with evidence of UTI. -Patient presented with significant leukocytosis of 23.5. Mild elevated PCT of 0.67 and trended down to normal. Continue to trend WBC daily. -Blood cultures have no growth to date. Urine cultures preliminarily growing gram-negative bacilli. -Received ceftriaxone 1 g IV x1 and volume resuscitation in ED. Continue cef triaxone 2 g daily pending identification and sensitivities. 3. Acute kidney injury, present on admission. Resolving. -Initial creatinine 2.2. No history of chronic kidney disease. -Etiology likely multifactorial and secondary to pre renal azotemia and postobstructive due to prostatic obstruction. -Renal ultrasound demonstrated moderate bilateral hydronephrosis with massive dilatation of the bladder. -Continue IV fluids and monitor urine output closely. 4. Acute hyponatremia, present on admission. Active. -Initial sodium level 121. Likely secondary to volume depletion. -Continue normal saline decreased from 125 mL/hr to 75 mL/hr. -Continue to monitor sodium daily. 5. Acute urinary obstruction secondary to BPH, present on admission. Stable. -Urology, Dr. Bustillos, was consulted and placed Riley catheter. We appreciate his time and care of the patient. -Started tamsulosin 0.4 mg daily today. -Patient at risk of post obstructive diuresis and will continue to monitor I&O closely. -Plan for patient to follow up with Urology following discharge for voiding trial and possible removal of Riley catheter. 6. Anemia and thrombocytosis, present on admission. Stable. -Etiology is likely reactive and acute affects of sepsis. Also hemodilutional component to anemia as trending down with IVF. Thrombocytosis improving. -Continue to monitor CBC daily. 7. Acute generalized weakness, present on admission. Active. -Ordered physical and occupational therapy evaluation and treatment, pending. 8. COPD without exacerbation, present on admission. Stable. -Continue albuterol nebulizer as needed. Disposition: Patient likely to discharge home possibly with home health versus PT outpatient versus no needs once urine culture identification and sensitivities have resulted.
[2018-07-07] MEDS: ENOXAPARIN 30 MG/0.3 ML SYRINGE SUBCUT (08:49)
--- NOTE | 2018-07-07 11:40 | PC.NURSE ---
Addendum entered by Shaw Dillard R.N. 07/07/18 14:45: pt restful, watching TV, offers no c/o presently. Original Note: Spoke with family, Pt states he is feeling much better, urine output wnl and clear. Pt offers no overt c/o pain and appears cheerier than yesterday. Pt and family asking appropriate question. Family attentive at bedside.
[2018-07-07 11:47] LABS: Procalcitonin 0.48 ng/mL (<0.5)
[2018-07-07] MEDS: CEFTRIAXONE 2 GM/50 ML FROZ.PIGGY IV (12:17)
[2018-07-07] MEDS: ALBUTEROL HFA 60 PUFF/8 GM INH INH (13:42)
[2018-07-07] MEDS: TAMSULOSIN 0.4 MG CAPSULE PO (14:53)
--- NOTE | 2018-07-07 15:50 | PT.IIE ---
Current Diagnoses Sepsis, unspecified organism (07/06/18) Urinary tract infection, site not specified (07/06/18) Surgical History (Last Reviewed 07/06/18 @ 06:29 by Mel Yi DO) Hx of cataract surgery (Acute) Medical History (Last Reviewed 07/06/18 @ 06:29 by Mel Yi DO) Asthma (Acute) COPD (chronic obstructive pulmonary disease) (Acute) Enlarged prostate (Acute) Physical Therapy Inpatient Evaluation/Re-Eval M1 PT/OT-IP Prior Functional Status Start: 07/07/18 16:26 Freq: NEEDED Status: Active Protocol: Document 07/07/18 15:50 [facility] (Rec: 07/07/18 16:33 [facility] [id number]) Medical Review Prior Functional Status Medical History Reviewed Yes Mobility and Gait indep community ambulator without device Activities of Daily Living and IADL's indep I/ADLs Social History Household Members none Living Arrangements House Number of Floors (Floors) One Floor Number of Stairs To Enter/Railing? 3 SE no rail Home Environment Standard Height Toilet Tub/Shower Additional Social History Comment Pt presented with fever, chills, weakness x2 weeks and possibly had the flu prior to this illness. Pt diagnosed with sepsis, UTI, required harvey catheter placement. son lives with pt but works M2 PT-IP Current Condition Start: 07/07/18 16:26 Freq: NEEDED Status: Active Protocol: Document 07/07/18 15:50 [facility] (Rec: 07/07/18 16:33 [facility] [id number]) Physical Therapy Current Condition Current Condition Evaluation Date 07/07/18 Treatment Diagnosis sepsis, impaired activity tolerance M3 PT-IP Subjective Start: 07/07/18 16:26 Freq: NEEDED Status: Active Protocol: Document 07/07/18 15:50 [facility] (Rec: 07/07/18 16:33 [facility] [email or web address]) Subjective Physical Therapy Visit Type Type Initial Evaluation Visit Start Time 15:50 Visit Stop Time 16:15 Total Visit Minutes 25 Number of SALESFORCE CONSULTANT Visits 0 Physical Therapy Visit Comments Patient Comments pt reports that he is doing a little better today, feeling less weak and fatigued. Patient Goals to get better M4 PT-IP Mobility and Gait Start: 07/07/18 16:26 Freq: NEEDED Status: Active Protocol: Document 07/07/18 15:50 [facility] (Rec: 07/07/18 16:33 [facility] [id number]) PT-Bed Mobility Assessment Supine to Sit Supine to Sit Independent Sit to Supine Sit to Supine Independent PT-Transfer Assessment Sit to and From Stand Sit to and from Stand Independent Equipment Transfer Assistive Device Gait Belt Front Wheeled Walker Transfers Transfer Destination Bed Transfer Technique Stand Step Pivot Transfer Ability Level of Assist Standby Assistance Gait Assessment Gait Gait Assistance Required: Standby Assistance Distance (Feet) 150 Assistive Devices Assistive Device Gait Belt Front Wheeled Walker Gait Deviations General Gait Pattern Decreased Feet Clearance Flexed Trunk Factors Limiting Gait Function Factors Limiting Gait Function Decreased Activity Tolerance PT-Balance Assessment Sitting Balance and Reactions Static Sitting Balance Ability Good Dynamic Sitting Balance Ability Good Standing Balance and Reactions Static Standing Balance Ability Good Dynamic Standing Balance Ability Fair Device Used FWW M5 PT-IP Objective Assessments Start: 07/07/18 16:26 Freq: NEEDED Status: Active Protocol: Document 07/07/18 15:50 [facility] (Rec: 07/07/18 16:33 [facility] [id number]) Orientation Orientation/Cognition Level of Alertness Alert Orientation Name Age Birthday Month Date Year Day of Week Place Situation Gross Range of Motion Lower Extremity ROM Assessment Within Functional Limits Strength Lower Extremity Strength Assessment Within Functional Limits Coordination Assessment Gross Coordination Gross Coordination WNL Sensation Assessment Sensation Gross Sensation WNL Muscle Tone Muscle Tone WNL Yes M6 PT-IP Treatment Start: 07/07/18 16:26 Freq: NEEDED Status: Active Protocol: Document 07/07/18 15:50 [facility] (Rec: 07/07/18 16:33 [facility] [id number]) Physical Therapy Treatment Education Education Provided Safety M7 PT-IP Assessment and Plan Start: 07/07/18 16:26 Freq: NEEDED Status: Active Protocol: Document 07/07/18 15:50 [facility] (Rec: 07/07/18 16:33 [facility] [id number]) PT Summary Assessment and Plan Potential Rehabilitation Potential Good Status of Condition at Evaluation Evolving Summary Impairments Gait Activity Tolerance Assessment Summary Pt is below his prior functional baseline, using a FWW for gait today and does fatigue with ambulation x150 ft. Pt reports his son will put a rail on the stairs prior to d/c. Pt was fatigued but NH and O2 saturation on RA WNL . Expect pt to continue to improve with mobility as his medical status improves, likely d/c home when medically stable. Will trial gait with less restrictive device vs no AD when ready to assess if need for FWW upon d/c. Goals Bed Mobility Goal Independent Transfer Goal Independent Gait Goal Independent Gait Distance 300 Other Goals up/down 3 steps without rail and CGA Frequency of Treatment Frequency Of Treatment Once a Day Treatment Plan Physical Therapy Treatment Plan Bed Mobility Training Transfer Training Gait Training Therapeutic Exercise Discharge Planning Neuromuscular Re-ed Other Recommendations and Next Treatment gait trial with SPC or IV pole Focus vs no AD, stairs prior to d/c . Recommendations To Nursing Amount of Assist Needed 1 Person Assist Discharge Recommendations PT Discharge Recommendations Home Equipment Needed for Home Before possible FWW Discharge
[2018-07-07] MEDS: ALBUTEROL 2.5 MG/3 ML NEB (ADULT) INH (19:17)
[2018-07-07] MEDS: ALBUTEROL/IPRATROPIUM 3 ML AMPUL INH (20:06)
[2018-07-08 00:03] VITALS: BP 126/72; PULSE 79; RESP 18; TEMP 36.9; O2SAT 98
[2018-07-08] MEDS: SODIUM CHLORIDE 0.9% 1,000 ML 75 ML IV (01:17)
--- NOTE | 2018-07-08 04:18 | PC.NURSE ---
Urine output for noc shift copious and clear yellow. Pt denies pain and was able to sleep.
[2018-07-08 04:55] VITALS: BP 137/67; PULSE 78; RESP 16; TEMP 36.6; O2SAT 98
[2018-07-08 06:11] LABS: Add Manual Diff / Slide Review NO; Basophils Absolute Auto 100 /uL (0-100); Basophils Percent Auto 0.9 % (0-2); Eosinophils Absolute Auto 100 /uL (0-450); Eosinophils Percent Auto 1.5 % (2-4); Hematocrit 27.5 % (41-53); Hemoglobin 9.7 g/dL (13.5-17.5); Lymphocytes Absolute Auto 1200 /uL (1100-4500); Lymphocytes Percent Auto 14.6 % (25-40); Mean Corpuscular HGB Conc 35.1 % (30-36); Mean Corpuscular Hemoglobin 33.7 PG (26-34); Mean Corpuscular Volume 95.9 fL (80-100); Monocytes Absolute Auto 700 /uL (0-900); Monocytes Percent Auto 8.7 % (3-14); Neutrophils Absolute Auto 6300 /uL (1500-7000); Neutrophils Percent Auto 74.3 % (50-75); Platelet Count 510 X10^3/uL (150-400); Red Blood Cell Count 2.87 X10^6/uL (4.5-5.9); Red Cell Distribution Width 13.6 % (11.6-14.8); White Blood Cell Count 8.5 X10^3/uL (4.5-11.0)
[2018-07-08 06:16] LABS: BUN Creatinine Ratio 15.5 (6-22); Blood Urea Nitrogen 17 mg/dL (9-20); Calcium 8.1 mg/dL (8.4-10.2); Carbon Dioxide 24 mmol/L (22-32); Chloride 102 mmol/L (98-107); Estimated Glomerular Filt Rate > 60.0 mL/min (>60); Glucose 96 mg/dL (80-110); HEMOLYSIS < 15 (0-50); Magnesium 1.7 mg/dL (1.6-2.3); Potassium 3.5 mmol/L (3.4-5.1); Sodium 134 mmol/L (137-145)
[2018-07-08 07:20] LABS: Procalcitonin 0.22 ng/mL (<0.5)
[2018-07-08 07:50] VITALS: BP 132/66; PULSE 77; RESP 16; TEMP 37; O2SAT 98
--- NOTE | 2018-07-08 08:40 | PT.IPTN ---
Current Diagnoses Sepsis, unspecified organism (07/06/18) Urinary tract infection, site not specified (07/06/18) Physical Therapy Treatment Note M2 PT-IP Current Condition Start: 07/07/18 16:26 Freq: NEEDED Status: Active Protocol: Document 07/07/18 15:50 [facility] (Rec: 07/07/18 16:33 [facility] [email or web address]) Physical Therapy Current Condition Current Condition Evaluation Date 07/07/18 Treatment Diagnosis sepsis, impaired activity tolerance M3 PT-IP Subjective Start: 07/07/18 16:26 Freq: NEEDED Status: Active Protocol: Document 07/08/18 08:40 RS (Rec: 07/08/18 14:16 RS [id number]) Subjective Physical Therapy Visit Type Type Discharge Summary Visit Start Time 08:00 Visit Stop Time 08:40 Total Visit Minutes 40 Physical Therapy Visit Comments Patient Comments Pt ready to go home, doesn't want f/u therapy, also reports daughter is bringing him a walker. M4 PT-IP Mobility and Gait Start: 07/07/18 16:26 Freq: NEEDED Status: Active Protocol: Document 07/08/18 08:40 RS (Rec: 07/08/18 14:16 RS [id number]) PT-Bed Mobility Assessment Supine to Sit Supine to Sit Independent Sit to Supine Sit to Supine Independent PT-Transfer Assessment Sit to and From Stand Sit to and from Stand Independent Equipment Transfer Assistive Device Gait Belt Front Wheeled Walker Transfer Ability Level of Assist Independent Comments Mobility Comments can mobilize safely with FWW Gait Assessment Gait Gait Assistance Required: Independent Assistive Devices Assistive Device Gait Belt Front Wheeled Walker Gait Deviations General Gait Pattern Decreased Feet Clearance Flexed Trunk Factors Limiting Gait Function Factors Limiting Gait Function Decreased Activity Tolerance Comments Gait Comments Not able to walk as far as yesterday but very stable M5 PT-IP Objective Assessments Start: 07/07/18 16:26 Freq: NEEDED Status: Active Protocol: Document 07/07/18 15:50 [facility] (Rec: 07/07/18 16:33 [facility] [email or web address]) Orientation Orientation/Cognition Level of Alertness Alert Orientation Name Age Birthday Month Date Year Day of Week Place Situation Gross Range of Motion Lower Extremity ROM Assessment Within Functional Limits Strength Lower Extremity Strength Assessment Within Functional Limits Coordination Assessment Gross Coordination Gross Coordination WNL Sensation Assessment Sensation Gross Sensation WNL Muscle Tone Muscle Tone WNL Yes M6 PT-IP Treatment Start: 07/07/18 16:26 Freq: NEEDED Status: Active Protocol: Document 07/07/18 15:50 [facility] (Rec: 07/07/18 16:33 [facility] [email or web address]) Physical Therapy Treatment Education Education Provided Safety M7 PT-IP Assessment and Plan Start: 07/07/18 16:26 Freq: NEEDED Status: Active Protocol: Document 07/08/18 08:40 RS (Rec: 07/08/18 14:16 RS [id number]) PT Summary Assessment and Plan Potential Rehabilitation Potential Good Status of Condition at Evaluation Stable Summary Impairments Gait Activity Tolerance Progress Towards Goals Progressing Toward Goals Assessment Summary Pt still requiring use of FWW for all OOB mobility which is below pt's reported functional baseline. While patient is safe to discharge directly home once medically ready he would also greatly benefit from OPPT vs HHPT to ultimately help pt get back to PLOF. Pt is discharging home this evening and has no other acute PT goals, therefore will sign off. Frequency of Treatment Frequency Of Treatment Discharge Recommendations To Nursing Amount of Assist Needed Standby Assistance Discharge Recommendations PT Discharge Recommendations Home Equipment Needed for Home Before FWW (dtr is providing) Discharge
[2018-07-08] MEDS: TAMSULOSIN 0.4 MG CAPSULE PO (09:00)
[2018-07-08] MEDS: ENOXAPARIN 30 MG/0.3 ML SYRINGE SUBCUT (09:00)
[2018-07-08] MEDS: CIPROFLOXACIN 500 MG TABLET PO (09:38)
--- NOTE | 2018-07-08 09:46 | P.DS_ITS ---
History of Present Illness Date Patient Seen: 07/06/18 Chief complaint: HAD FLU NOT FEELING WELL Narrative: Written by Dr. Almaraz: Patient is a 67-year-old male with history of COPD presents to the emergency department with complaints of fevers, chills and weakness for the previous 2 weeks. He denies cough or respiratory exacerbation. He has noticed urinary urgency and weak stream with frequent urination over the past 2 weeks. He has history of BPH. On initial evaluation he was afebrile and normotensive. He has elevated WBC 23 K, abnormal renal functionWith BUN 39 and creatinine 2.2 and a mild anion gap acidosis as well as moderate hyponatremia with a serum sodium 121. Chest x-ray without infiltrate. Urine looks obviously infected with leukocytosis and many bacteria. Discharge Providers Date of admission: 07/06/18 03:56 Discharge Date: 07/08/18 Primary care physician: Daniel Almaraz MD Consults: 07/07/18 10:25 Consult to Occupational Therapy Evaluate & Treat Comment: Physician Instructions: Evaluate and treat Consult to Physical Therapy Evaluate & Treat Comment: Physician Instructions: Evaluate and Treat Discharge provider: Lucy Vogt DO Summary Discharge Diagnosis: 1. Acute sepsis, present on admission. Resolved. 2. Acute klebsiella oxytoca urinary tract infection, present on admission. Active. 3. Acute kidney injury, present on admission. Resolved. 4. Acute hyponatremia, present on admission. Resolving. 5. Acute obstructive uropathy secondary to BPH now with indwelling harvey catheter, present on admission. Resolved. 6. Acute anemia, present on admission. Stable. 7. Thrombocytosis, possibly acute on chronic, present on admission. Active. 8. Acute generalized weakness, present on admission. Resolved. 9. COPD without exacerbation, present on admission. Stable. Hospital Course: Pranav Alberto is a 67-year-old male with a past medical history significant for BPH and COPD who presented with 2 weeks of fevers, chills, and evidence of urinary tract infection. 1. Acute sepsis, present on admission. Resolved. -Sepsis criteria met including: Fever (100.4F), leukocytosis (WBC 23), procalcitonin 0.67, mildly 97/47, acute kidney injury (creatinine 2.2) with source urinary tract infection. LA normal. -Early goal-directed therapy met including: IV fluid resuscitation and broad- spectrum antibiotics. 2. Acute klebsiella oxytoca urinary tract infection, present on admission. Active. -Patient presented with fever and chills x2 weeks with evidence of UTI. -Patient presented with significant leukocytosis of 23.5. Mildly elevated PCT of 0.67 and trended down to normal. Continued to trend WBC daily which trended down to normal. -Blood cultures have no growth to date. Urine cultures preliminarily growing gram-negative bacilli. -Received ceftriaxone 1 g IV x1 and volume resuscitation in ED. Continue ceftriaxone 2 g daily pending identification and sensitivities. 3. Acute kidney injury, present on admission. Resolved. -Initial creatinine 2.2 with unclear baseline. No history of chronic kidney disease. Creatinine on discharge 1.10. -Etiology likely multifactorial and secondary to pre-renal azotemia and postob structive uropathy due to prostatic obstruction. -Renal ultrasound demonstrated moderate bilateral hydronephrosis with massive dilatation of the bladder which was priro to harvey catheter placement by urology. -Continued IV fluids until adequately hydrated. Continued to monitor urine output closely. 4. Acute hyponatremia, present on admission. Resolving. -Initial sodium level 121. Likely secondary to volume depletion. Sodium on discharge 134. -Continued IV fluid with normal saline decreased until adequately hydrated and outside of postobstructive diuresis window. -Continued to monitor sodium daily. 5. Acute obstructive uropathy secondary to BPH now with indwelling harvey catheter, present on admission. Resolved. -Consulted Urology, Dr. Bustillos, who placed Harvey catheter. We appreciate his time and care of the patient. -Started and continued tamsulosin 0.4 mg daily today. -Continued IV fluid with normal saline decreased until adequately hydrated and outside of postobstructive diuresis window. Monitored I&O closely. -Provided Harvey management education per nursing staff. -Plan for patient to follow-up with Urology following discharge for voiding trial and possible removal of Harvey catheter. 6. Acute anemia, present on admission. Stable. -Etiology is likely reactive and due to acute affects of sepsis, as well as, hemodilutional due to IVF. -Hemoglobin and hematocrit stable. No overt signs of bleeding. -Continued to monitor CBC daily. 7. Thrombocytosis, possibly acute on chronic, present on admission. Active. -Initial platelet count 692. Trended down with IV fluid hydration. Platelet count now trending back up and was 510 at time of discharge. -Started and will continue aspirin 81 mg daily for VTE prophylaxis. Received enoxaparin while in hospital. -Patient made aware of thrombocytosis and risk of VTE and recommended outpatient follow-up with PCP, Dorothy Stone, at scheduled appointment for further evaluation and treatment. 8. Acute generalized weakness, present on admission. Resolved. -Continued physical therapy evaluation and treatment. Signed off. Patient home with no needs. 9. COPD without exacerbation, present on admission. Stable. -Continued albuterol nebulizer as needed. Status at Discharge Functional status at discharge: independent ambulation Overall status at discharge: patient is back to baseline Exam Vital Signs (past 8 hours): - 07/08/18 04:55 07/08/18 07:50 Temperature 97.8 F 98.6 F Pulse Rate 78 77 Respiratory Rate 16 16 Blood Pressure 137/67 132/66 Pulse Oximetry 98 98 Oxygen Delivery Method Room Air Oxygen Flow Rate 0 Narrative Exam Narrative: General: Middle-aged male resting in bed and in no acute distress, appears pale, older than stated age and chronically ill, well-developed, well-nourished, appropriately interactive. HEENT: Normocephalic, atraumatic. External ears without defect. Pupils equal, round, and reactive to light. Anicteric sclerae, moist conjunctivae, and no lid lag. Neck: Supple with full range of motion. No jugular venous distension. No lymphadenopathy or thyromegaly. Cardiovascular: Regular rate and rhythm without murmurs, rubs, or gallops appreciated. Pulmonary: Clear to auscultation bilaterally without crackles, wheezes, or rhonchi. Normal respiratory effort with no use of accessory muscles. Abdomen: Soft, bowel sounds present, nontender, nondistended. No hepatosplenomegaly or masses appreciated. Genitourinary: Harvey catheter in place draining clear urine. Extremities: No clubbing or cyanosis. Mild pitting edema bilaterally to ankles. [place] rocker bottom feet? Skin: Normal temperature, turgor, and texture; no rash, ulcers, or subcutaneous nodules appreciated. Neurological: Cranial nerves grossly intact. Psychiatric: Mildly depressed mood and flat affect. Slow mentation and possible mild cognitive impairment. Alert and oriented to person, place, and time. Objective Labs Result Diagrams: 07/08/18 05:47 07/08/18 05:47 Labs: Laboratory Results - last 24 hr 07/07/18 07/08/18 07/08/18 04:52 05:47 05:47 WBC 8.5 RBC 2.87 L Hgb 9.7 L Hct 27.5 L MCV 95.9 MCH 33.7 MCHC 35.1 RDW 13.6 Plt Count 510 H Neut % (Auto) 74.3 Lymph % (Auto) 14.6 L [place] % (Auto) 8.7 Eos % (Auto) 1.5 L Baso % (Auto) 0.9 Neut # (Auto) 6300 Lymph # (Auto) 1200 [place] # (Auto) 700 Eos # (Auto) 100 Baso # (Auto) 100 Sodium Potassium Chloride Carbon Dioxide BUN Creatinine Estimated GFR BUN/Creatinine Ratio Glucose Calcium Magnesium Procalcitonin 0.48 0.22 07/08/18 05:47 WBC RBC Hgb Hct MCV MCH MCHC RDW Plt Count Neut % (Auto) Lymph % (Auto) [place] % (Auto) Eos % (Auto) Baso % (Auto) Neut # (Auto) Lymph # (Auto) [place] # (Auto) Eos # (Auto) Baso # (Auto) Sodium 134 L Potassium 3.5 Chloride 102 Carbon Dioxide 24 BUN 17 Creatinine 1.10 Estimated GFR > 60.0 BUN/Creatinine Ratio 15.5 Glucose 96 Calcium 8.1 L Magnesium 1.7 Procalcitonin Discharge Plan Discharge Plan Patient Disposition: Home Discharge comment: You are being discharged home. You were prescribe ciprofloxacin 500 mg twice daily for 5 additional days to complete total anti biotic course. You were prescribed tamsulosin 0.4 mg daily to help shrink your prostate and help you urinate. Please follow-up with Urology, Dr. Bustillos, at your scheduled appointment to assess Harvey catheter and whether this can be removed or not. Please follow up with your PCP, Dorothy Stone, at your scheduled appointment regarding your hospitalization and further evaluation and treatment of high platelet. You were also prescribed aspirin 81 mg daily to protect against blood clots. Discharge Med Rec/Prescriptions Prescriptions: New ciprofloxacin HCl [Cipro] 500 mg Tablet 500 mg PO BID Qty: 10 RF: 0 tamsulosin [Flomax] 0.4 mg Capsule 0.4 mg PO DAILY Qty: 30 RF: 0 aspirin [Aspirin Low Dose] 81 mg tablet,delayed release (DR/EC) 81 mg PO DAILY Qty: 30 RF: 0 Continued albuterol sulfate 90 mcg/actuation HFA aerosol inhaler See Rx Instructions .ROUTE .COMPLEX PRN (Reason: Shortness Of Breath) RF: 0 Follow up/Referrals: Dorothy Stone PA-C [Physician] - 1 Week (appt:07/15 @ 11:25 check in for appointment with geno choi @ [facility] [phone] ) Kristopher Bustillos MD [Physician] - 3-5 Days (dr bustillos's office will contact you with a follow up appointment-records have been faxed ) Provider Discharge Instructions Diet: Diet as Tolerated Activity: Activity as tolerated Other treatments: Harvey care per nursing instruction Visit Report/Discharge Packet Instructions: How to Care for Your Harvey Catheter -- Male, Ciprofloxacin, Tamsulosin Discharge Data Primary Care Provider: Daniel Almaraz Attending Provider: Farhad Ambriz Date/Time: 07/06/18 03:56
[2018-07-08] MEDS: ALBUTEROL HFA 60 PUFF/8 GM INH INH (09:50)
--- NOTE | 2018-07-08 10:41 | RT ---
Patient called for a treatment. I tried to give him his scheduled Duoneb, but he refused. He said he wanted his Albuterol inhaler. I gave him his inhaler to use. He used it three times in a row. The first puff with the spacer. The next two times he took four puffs at once without the spacer. I tried to take the inhaler back to lock in back in his drawer. He refused and said it is his, he brought it with him. I explained I am supposed to lock up the medication so that we know when he is taking it so that he doesn't get too much. He still refused to give it back to me and stated that his is leaving. I let the RN know. She is aware he has the inhaler in his possession and is using it incorrectly.
[2018-07-08 10:48] VITALS: PULSE 77; RESP 16; O2SAT 98
--- NOTE | 2018-07-08 11:36 | CM.DPC ---
DCP: continued: Case received and Dr. Vogt stated pt was ready for d/c to home. Met with pt in followup after conferring with STACI Cobb and OT Wendi. Pt does not show good understanding of his harvye catheter management at this time,will not use the leg bag for now. OT notes he is unsteady when up and should not go in a taxi to his home as he likely could not manage the stairs. (son is in process of building a ramp.) Initially Dr. Vogt had told pt's son that he could go home in a taxi. Dr. Vogt has now been updated on some of the home issues with pt and she agrees that HH NR/OT/PT would be helpful and agrees it is best to wait until son gets off work: about 1700 and can take pt home. Dr. Vogt plans to discuss the pt's medical issues in greater detail with the son once he arrives. STACI Cruz is updated and will pass the info on to barbara SMALL. Discussed HH choice list with pt: decision: [facility] the referral and [facility] will see pt within 24/48 hours. P: home today: HH: son will pick him up after 1700.
[2018-07-08 12:00] VITALS: BP 138/69; PULSE 83; RESP 17; TEMP 36.9; O2SAT 99
--- NOTE | 2018-07-08 12:43 | OT.IP.EVAL ---
Current Diagnoses Sepsis, unspecified organism (07/06/18) Urinary tract infection, site not specified (07/06/18) Past Medical History (Last Reviewed 07/06/18 @ 06:29 by Mel Yi DO) Asthma (Acute) COPD (chronic obstructive pulmonary disease) (Acute) Enlarged prostate (Acute) Surgical History (Last Reviewed 07/06/18 @ 06:29 by eMl Yi DO) Hx of cataract surgery (Acute) Occupational Therapy Inpatient Evaluation/Re-Eval M1 PT/OT-IP Prior Functional Status Start: 07/08/18 12:09 Freq: NEEDED Status: Active Protocol: Document 07/08/18 12:10 [facility] (Rec: 07/08/18 12:43 [facility] [id number]) Medical Review Prior Functional Status Medical History Reviewed Yes Mobility and Gait indep community ambulator without device Activities of Daily Living and IADL's indep I/ADLs Prior Functional Level (Other details) Pt states since car not working properly has not been driving and his son drives him places. In addition, pt states usually does sponge bath or son takes him somewhere for showers. Social History Household Members none Living Arrangements House Number of Floors (Floors) One Floor Number of Stairs To Enter/Railing? 3 SE no rail Home Environment Standard Height Toilet Tub/Shower Additional Social History Comment Pt presented with fever, chills, weakness x2 weeks and possibly had the flu prior to this illness. Pt diagnosed with sepsis, UTI, required harvey catheter placement. son lives with pt but works M2 OT-IP Current Condition Start: 07/08/18 12:09 Freq: Status: Active Protocol: Document 07/08/18 12:10 [facility] (Rec: 07/08/18 12:43 [facility] [id number]) Occupational Therapy Current Condition Current Condition Evaluation Date 07/08/18 Treatment Diagnosis Sepsis Diagnosis Onset Date 07/06/18 Weight Bearing Status Weight Bearing Status Weight Bear as Tolerated M3 OT- IP Subjective and Pain Start: 07/08/18 12:09 Freq: Status: Active Protocol: Document 07/08/18 12:10 [facility] (Rec: 07/08/18 12:43 [facility] [id number]) OT- Subjective Occupational Therapy Visit Type Type Initial Evaluation Visit Start Time 10:40 Visit Stop Time 11:15 Total Visit Minutes 35 Occupational Therapy Visit Comments Patient Comments Pt states ready to go home and planning of getting a cab to go home initially. After talking to pt and seeing him move in the room able to encourage pt to have his son to pick him up would be best, as having loss of balance while taking a few steps in the room and rail not placed on 3 steps yet and does not have a FWW yet for home use. Pt agreeable to have home health services. OT Pain Assessment Pain When Pain Assessed At Rest Pain Present Pain Present Denied Pain M4 OT- IP ADL's Start: 07/08/18 12:09 Freq: Status: Active Protocol: Document 07/08/18 12:10 [facility] (Rec: 07/08/18 12:43 [facility] [id number]) OT ADL-Dressing General Eval Upper Body Dressing Ability Independent Lower Body Dressing Ability Standby Assistance Comments OT Dressing Comments vc for sequence to help get catheter in place while putting on underwear. Pt needing cues to sit down to svia underwear as unsteady on his feet to try to siva underwear while standing. OT ADL-Toileting Comments OT Toileting Comments Has catheter. M5 OT- IP IADL's Start: 07/08/18 12:09 Freq: Status: Active Protocol: Document 07/08/18 12:10 [facility] (Rec: 07/08/18 12:43 [facility] [id number]) OT-Instrumental Activities of Daily Living Home Safety Awareness Ability to Problem Solve Emergency Able to Problem Solve Situations Home Safety Comments Pt accurate for all home safety situations. Medication Management Medication Management Comments Pt states does all medicaiton needs at home. Money Management Money Management Comments Pt states just uses debit card . Driving Driving Comments Pt states does not drive due to car not working properly. M6 OT- IP Functional Cognition Start: 07/08/18 12:09 Freq: Status: Active Protocol: Document 07/08/18 12:10 [facility] (Rec: 07/08/18 12:43 [facility] [id number]) Cognitive Factors Limiting Selfcare Function Cognitive Ability Level of Alertness Alert Patient Orientation Name Place Situation Attention Span Ability Capable of Focused Attention Capable of Sustained Attention Ability to Follow Commands Able to Follow One Step Commands Memory Description Short Term Impaired Safety Awareness Underestimates Need for Assistance Problem Solving Ability Needs Assist to Identify Solutions Cognitive Comments Cognitive Assessment Comments Pt a bit forgetful and looking for his wallet and did not realize that in was in his pant pocket of the pants he was wearing. Pt needing safety cues to sit down instead of trying to doff pants over his feet. Pt needing cues for catheter management. OT- Vision and Hearing OT- Hearing Assessment OT- Hearing Assessment WFL OT- Vision Assessment Vision Assessment Comments Pt able to read the time of the clock accurately. M7 OT- IP Mobility and Balance Start: 07/08/18 12:09 Freq: Status: Active Protocol: Document 07/08/18 12:10 [facility] (Rec: 07/08/18 12:43 [facility] [id number]) OT- Bed Mobility Assessment Supine to Sit Supine to Sit Assist Independent Sit to Supine Sit to Supine Assist Independent OT-Transfer Assessment Sit to and From Stand Sit to and from Stand Independent Transfers Transfer Ability Independent Technique Transfer Destination Bed Chair Transfer Technique Stand Step Pivot Devices Transfer Assistive Devices None Comments Mobility Comments Pt able to walk in the room with no device but unsteady on his feet, pt would be safer with FWW. Pt states daughter has ordered FWW for him to use but will not have one to use for today to go home. Therefore spoke to pt and state that it would be best instead of getting a cab to have son come and pick pt up and help him into the house instead of trying to get in by himself and without a device and try to manage 3 steps at well. OT- Balance Assessment Sitting Balance and Reactions Static Sitting Balance Ability Normal Dynamic Sitting Balance Ability Normal Standing Balance and Reactions Static Standing Balance Ability Good Dynamic Standing Balance Ability Fair M8 OT- IP Objective Assessments Start: 07/08/18 12:09 Freq: Status: Active Protocol: Document 07/08/18 12:10 [facility] (Rec: 07/08/18 12:43 [facility] [id number]) OT Gross Range of Motion Upper Extremity Range of Motion Assessment Within Functional Limits OT Strength Upper Extremity Strength Assessment Within Functional Limits OT- Coordination Assessment Upper Extremity Finger to Nose Test Within Functional Limits OT-Muscle Tone Assessment Muscle Tone WNL Yes M9 OT- IP Assessment and Plan Start: 07/08/18 12:09 Freq: Status: Active Protocol: Document 07/08/18 12:10 [facility] (Rec: 07/08/18 12:43 [facility] [id number]) OT Summary Assessment and Plan Potential Rehabilitation Potential Good Analytic Complexity at Evaluation Low Summary OT Impairments Balance Dressing Bathing Shower Transfers Progress Towards Goals Progressing Toward Goals Assessment Summary Pt low complexity and main barrier is unsteady on his feet without FWW, would benefit from installation of rail on his steps , and a bit impulsive. Pt already has discharge orders and awaiting son to come pick him up. Pt after much discussion, open to having home health services now. Goals OT-Other Goals Pt to be aware of safety, OT equipment needs, and to be able to slow down and think things through. Days to Meet Goals 1 Frequency of Treatment Frequency Of Treatment Once a Day Treatment Plan OT Treatment Plan Discharge Planning Discharge Recommendations OT Discharge Recommendations Home with Assistance Home Health Home Equipment Needs shower chair, FWW
--- NOTE | 2018-07-08 15:29 | PC.NURSE ---
Pt dressed and ready for discharge home with Daughter. Catheter and leg bag teaching performed and Pt states he is clear on how to switch and empty bags. He states he will probably stick with the larger catheter bag. Reviewed catheter information with daughter. Pt to have [facility] and they will be contacting him. Went over d/c meds and timing. Pt to follow up with Dr. Bustillos in the next couple of days and they will be contacting him to set up his follow up appointment. Appointment is already made for his PCP follow up. Pt and daughter deny further questions and Pt was taken out via w/c by RN to POV with daughter and all belongings.
== END 2018-07-08 15:34 | disposition home health service (06) | DRG 872 ==
LOC: ED 07-06 03:55 → AC 07-06 03:57
PROVIDERS: Internal Medicine; Admitting Provider Nurse Practitioner Adult Health; Emergency Provider Emergency Medicine; PCP Internal Medicine; Visit Provider Nurse Practitioner Adult Health
DX: A41.9 Sepsis, unspecified organism (principal); N17.9 Acute kidney failure, unspecified; E87.1 Hypo-osmolality and hyponatremia; E87.2 Acidosis; N39.0 Urinary tract infection, site not specified; N13.30 Unspecified hydronephrosis; R65.20 Severe sepsis without septic shock; D47.3 Essential (hemorrhagic) thrombocythemia; J44.9 Chronic obstructive pulmonary disease, unspecified; R33.9 Retention of urine, unspecified; N35.811 Other urethral stricture, male, meatal; B96.89 Other specified bacterial agents as the cause of diseases classified elsewhere; D64.89 Other specified anemias; N40.1 Benign prostatic hyperplasia with lower urinary tract symptoms
CPT/HCPCS: 36415; 36591; 71046; 76770; 80048; 80053; 81001; 81003; 83605; 83735; 84100; 84145; 85025; 87040; 87077; 87086; 87186; 93005; 93010; 94640; 94760; 94762; 96361; 96365; 97162; 97165; 97530; 99283; 99284; J0696; J1650; J7613